=== PATIENT | male | born 1995 | race Caucasian/White ===

== ENCOUNTER 2023-08-04 18:14 | Emergency (ER) | payer SELFPAY ==
[~2023-08-04] VITALS: Ht 170.2 cm; Wt 87.1 kg
[2023-08-04 18:30] VITALS: BP 122/68; PULSE 78; RESP 18; TEMP 99.5; O2SAT 99
[2023-08-04] MEDS: KETOROLAC 30 MG/ML VIAL IM ONE (20:46)
[2023-08-04] MEDS: HYDROcodone/APAP 7.5/325 MG 1 TAB PO ONE (20:47)
[2023-08-04] MEDS ORDERED: IBUP-2213 PO (20:52)
[2023-08-04] MEDS ORDERED: ACET-8905 PO (20:52)
== END 2023-08-04 21:16 | disposition home or self-care (01) ==
LOC: MED 18:14
DX: S82.831A Other fracture of upper and lower end of right fibula, initial encounter for closed fracture (principal); S82.51XA Displaced fracture of medial malleolus of right tibia, initial encounter for closed fracture; R03.0 Elevated blood-pressure reading, without diagnosis of hypertension; Z79.899 Other long term (current) drug therapy; V19.9XXA Pedal cyclist (driver) (passenger) injured in unspecified traffic accident, initial encounter; Y93.89 Activity, other specified; Y92.410 Unspecified street and highway as the place of occurrence of the external cause; Y99.8 Other external cause status
CPT/HCPCS: 29515; 73590; 73610; 73630; 96372; 99284; J1885

== ENCOUNTER 2023-08-14 10:07 | Emergency (ER) | payer MEDICAID ==
[~2023-08-14] VITALS: Ht 167.6 cm; Wt 86.2 kg
[~2023-08-14 10:07] MED LIST: ACET-8905 PO; IBUP-2213 PO
[2023-08-14 10:49] VITALS: BP 130/92; PULSE 81; RESP 18; TEMP 98; O2SAT 97
[2023-08-14] MEDS: ACETAMINOPHEN 325 MG TAB PO ONE (11:50)
[2023-08-14] MEDS: KETOROLAC 30 MG/ML VIAL IM ONE (11:51)
[2023-08-14] MEDS ORDERED: IBUP-2213 PO (13:19)
[2023-08-14 13:52] VITALS: BP 125/82; PULSE 88; RESP 16; TEMP 98; O2SAT 99
== END 2023-08-14 13:52 | disposition home or self-care (01) ==
LOC: MED 10:07
DX: S82.831A Other fracture of upper and lower end of right fibula, initial encounter for closed fracture (principal); Z79.1 Long term (current) use of non-steroidal anti-inflammatories (NSAID); X58.XXXA Exposure to other specified factors, initial encounter; Y93.89 Activity, other specified; Y92.89 Other specified places as the place of occurrence of the external cause; Y99.8 Other external cause status
CPT/HCPCS: 29515; 73610; 96372; 99283; J1885